=== PATIENT | male | born 1965 ===

== ENCOUNTER → 2021-03-21 12:07 | Outpatient (CLI) | payer OTHER ==
[~2021-03-21 12:07] MED LIST: ATACAND HCT 321 EACH PO; LIPITOR20 MG PO; NORVASC5 MG PO
== END | disposition home or self-care (01) ==
LOC: LAB 12:07 → RAD 12:07
PROVIDERS: ATTEND Urology
DX: I11.9 Hypertensive heart disease without heart failure (principal)

== ENCOUNTER 2021-04-05 05:26 | Day surgery (SDC) | payer OTHER | END 2021-04-05 14:10 | disposition home or self-care (01) | LOC: CIR.AMB 05:26 | PROVIDERS: ATTEND Urology | DX: N47.1 Phimosis (principal); Z20.822 Contact with and (suspected) exposure to COVID-19 ==

== ENCOUNTER 2021-10-30 11:04 | Emergency (ER) | payer OTHER ==
[~2021-10-30] VITALS: Ht 172.7 cm; Wt 97.5 kg
[2021-10-30] MEDS ORDERED: KETO10TA2 PO (13:55)
[2021-10-30] MEDS ORDERED: NORFLEX100MG PO (13:55)
== END 2021-10-30 14:16 | disposition home or self-care (01) ==
LOC: ER 11:04
DX: M54.50 Low back pain, unspecified (principal)

== ENCOUNTER 2023-05-13 10:12 | Emergency (ER) | payer OTHER ==
[~2023-05-13] VITALS: Ht 175.3 cm; Wt 90.7 kg
[~2023-05-13 10:12] MED LIST changes: +KETO10TA2 PO; +NORFLEX100MG PO
== END 2023-05-13 14:36 | disposition home or self-care (01) ==
LOC: ER 10:12
DX: B34.9 Viral infection, unspecified (principal); R53.81 Other malaise; I10 Essential (primary) hypertension; Z20.822 Contact with and (suspected) exposure to COVID-19; Z88.0 Allergy status to penicillin